=== PATIENT | female | born 1955 | race Caucasian/White ===

== ENCOUNTER → 2017-01-28 | Outpatient (CLI) | payer BC ==
--- NOTE | 2017-01-29 11:03 | DRAGON STRESS TEST REPORT ---
EXERCISE CARDIOLITE STRESS TEST USING SINGLE PHOTON EMMISION COMPUTERIZED TOMOGRAPHIC. DATE OF PROCEDURE: January 28, 2017 INDICATION : Chest pain CARDIAC RISK FACTORS: No significant reported RESTING EKG: Sinus rhythm, no Baseline ST-T wave changes noted STRESS EKG: Borderline significant changes noted with exercise. REASON FOR TERMINATION: Protocol. PROCEDURE REPORT: Baseline heart rate 60 beats per minute with blood pressure of 122/69. Patient had no significant complaints. Patient was excised on a standard Juan Jose protocol. Patient exercised for a total of 7 minutes and 01 seconds. Exercise stopped because of fatigue and shortness of breath. Patient achieved a peak heart rate of 137 bpm which is 86% of predicted maximum. Peak blood pressure achieved during the exercise was noted to be 154/66. Significant EKG artifacts were noted during exercise, therefore cannot recommend on ST segments changes during exercise. Immediate and early recovery did show mild ST segment depression of 1 mm in lateral chest leads. Patient had no other significant complaints during the procedure or postprocedure. CONCLUSIONS: Average exercise tolerance. No chest pain noted with exercise. Borderline EKG changes noted with exercise. Suboptimal blood pressure response but double product adequate at 20.1 kcalories. NUCLEAR DATA: At rest the patient was given 10.96 millicuries of technetium 99 sestamibi injected intravenously. As per protocol rest gated SPECT images were obtained. Subsequently the stress dose of 33.8 millicuries of technetium 99 sestamibi was injected intravenously at peak exercise. Patient continued to exercise for 1 to 2 additional minutes. As per protocol stress gated images were obtained. NUCLEAR INTERPRETATION: Both raw and processed data were used for interpretation. Visual, qualitative, computer-generated quantitative data was used. There was good myocardial uptake of technetium compound. Motion artifact and soft tissue attenuations were noted. Increased visceral uptake was noted. No definitive areas of transient perfusion defect noted. No definitive areas of fixed perfusion defect or scars noted. EKG gated imaging showed LV EF at 49 %, rest and stress gated EF similar visually. T. I D. ratio was 1.06. Lung heart ratio noted to be within normal limits 0.39. No significant extracardiac and abnormal radiotracer activities were noted. RV free wall uptake was noted to be WNL. IMPRESSION: Also refer to comments under nuclear interpretation. Also test results needs to be interpreted in the context of pretest probability. 1. There is no definitive scintigraphic evidence of exercise induced myocardial ischemia. 2. There is no definitive scintigraphic evidence of myocardial infarction/scar. 3. EKG gated imaging shows left ejection fraction of approximately 49 %. 4. Clinical correlation requested as occasionally single vessel disease or balanced ischemia could be missed. RECOMMENDATIONS: Aggressive risk factor modification, medical therapy. Clinical correlation with echocardiogram derived ejection fraction. Inability to exercise by itself can lead to increased cardiovascular event risks. Consider cardiology consultation and or follow-up if clinically indicated. I AM AVAILABLE FOR CARDIOLOGY CONSULTATION AND FOLLOWUP IF REQUESTED BY PMRamon Travis M.D., [employer] Worker long lines operator, Board certified in cardiovascular diseases, Nuclear cardiology, Echocardiography Cardiac CT and cardiac MRI Ph. [phone] [facility]
== END ==
LOC: RAD 07:58
PROVIDERS: ATTEND Family Medicine
DX: I20.8 Other forms of angina pectoris (principal)
CPT/HCPCS: 93017; 78452; A9500; Q9969

== ENCOUNTER 2017-11-20 15:42 | Inpatient (IN) | payer BC ==
--- NOTE | 2017-11-20 15:49 | ER Document Report ---
ED Extremity Problem, Lower - General Chief Complaint: Hip Pain Stated Complaint: RIGHT HIP PAIN Time Seen by Provider: 11/20/17 15:45 Notes: The patient is a 61-year-old female, no PMHx, who slipped down stairs, fell and landed on her right hip. She began to have pain at the area. EMS gave her 50 mcg of fentanyl prior to arrival. She denies numbness, tingling or open wounds. She did not hit her head. TRAVEL OUTSIDE OF THE [place] IN LAST 30 DAYS: No - Related Data Allergies/Adverse Reactions: codeine Allergy (Verified 11/20/17 15:54) Penicillins Allergy (Verified 11/20/17 15:54) Past Medical History - General Information source: Patient - Social History Smoking Status: Unknown if Ever Smoked Family History: None Pulmonary Medical History: Reports: Hx COPD Traumatic Medical History: Reports: Hx Fractures - wrist as a child Past Surgical History: Reports: Hx Tonsillectomy - Immunizations Immunizations up to date: No Hx Diphtheria, Pertussis, Tetanus Vaccination: No Review of Systems - Review of Systems Notes: REVIEW OF SYSTEMS: CONSTITUTIONAL: -fevers, -chills EENT: -eye pain, -difficulty swallowing, -nasal congestion CARDIOVASCULAR: -chest pain, -syncope. RESPIRATORY: -cough, -SOB GASTROINTESTINAL: -abdominal pain, -nausea, -vomiting, -diarrhea GENITOURINARY: -dysuria, -hematuria MUSCULOSKELETAL: +right hip pain, -back pain, -neck pain SKIN: -rash or skin lesions. HEMATOLOGIC: -easy bruising or bleeding. LYMPHATIC: -swollen, enlarged glands. NEUROLOGICAL: -altered mental status or loss of consciousness, -headache, - neurologic symptoms PSYCHIATRIC: -anxiety, -depression. ALL OTHER SYSTEMS REVIEWED AND NEGATIVE. Physical Exam - Vital signs Vitals: Temp Pulse BP Pulse Ox 98.2 F 85 131/76 H 92 11/20/17 16:13 11/20/17 16:13 11/20/17 16:13 11/20/17 16:13 - Notes Notes: PHYSICAL EXAMINATION: GENERAL: Mild distress. HEAD: Atraumatic, normocephalic. EYES: Pupils equal round and reactive to light, extraocular movements intact, sclera anicteric, conjunctiva are normal. ENT: nares patent, oropharynx clear without exudates. Moist mucous membranes. NECK: Normal range of motion, supple without lymphadenopathy LUNGS: Breath sounds clear to auscultation bilaterally and equal. No wheezes rales or rhonchi. HEART: Regular rate and rhythm without murmurs ABDOMEN: Soft, nontender, normoactive bowel sounds. No guarding, no rebound. No masses appreciated. EXTREMITIES: Internal rotation of right hip. Tenderness over right lateral hip. Strong distal pulses. Able to wiggle toes and sensation intact. NEUROLOGICAL: Cranial nerves grossly intact. Normal speech. Normal sensory and motor exams. PSYCH: Normal mood, normal affect. SKIN: Warm, Dry, normal turgor, no rashes or lesions noted. Course - Re-evaluation Re-evalutation: 11/20/17 16:53 Pt with oblique right proximal femur fracture. She is neurovascular intact distally. No other medical problems and pain is under control with morphine. Spoke to Dr. Bajwa and he will admit patient for surgical fixation. Pre-op labs, EKG and CXR ordered. - Vital Signs Vital signs: Temp Pulse Resp BP Pulse Ox 98.2 F 85 131/76 H 92 11/20/17 16:13 11/20/17 16:13 11/20/17 16:13 11/20/17 16:13 - Diagnostic Test Radiology reviewed: Image reviewed, Reports reviewed Radiology results interpreted by me: Right hip x-ray: OBLIQUE FRACTURE OF THE PROXIMAL RIGHT FEMUR. Discharge - Discharge Clinical Impression: Femur fracture, right Qualifiers: Encounter type: initial encounter Femur location: unspecified portion of femur Fracture type: closed Fracture morphology: unspecified fracture morphology Qualified Code(s): S72.91XA - Unspecified fracture of right femur, initial encounter for closed fracture Condition: Stable Disposition: ADMITTED INPATIENT Admitting Provider: Aydee Unit Admitted: Surgical Floor
[2017-11-20] MEDS ORDERED: MORPHINE SULFATE 10 MG/ML INJ IV ONE (15:58)
--- NOTE | 2017-11-20 16:19 | RADIOLOGY REPORT (SQ) ---
EXAM DESCRIPTION: HIP RIGHT AP/LATERAL COMPLETED DATE/TIME: 11/20/2017 4:10 pm REASON FOR STUDY: right hip pain COMPARISON: None. NUMBER OF VIEWS: Two views. TECHNIQUE: AP pelvis and additional frog-leg view of the right hip. LIMITATIONS: None. FINDINGS: MINERALIZATION: Normal. RIGHT HIP: Oblique fracture of the proximal femur with displacement. LEFT HIP: No fracture or dislocation. No worrisome bone lesions. PUBIS AND ISCHIUM: No fracture. PELVIS: No fracture. SACRUM: No fracture or dislocation. No worrisome bone lesions. LOWER LUMBAR SPINE: No fracture or dislocation. No worrisome bone lesions. No significant disc disea se. SOFT TISSUES: No findings. OTHER: No other significant finding. IMPRESSION: OBLIQUE FRACTURE OF THE PROXIMAL RIGHT FEMUR. TECHNICAL DOCUMENTATION: JOB ID: [id number] [employer]- All Rights Reserved
--- NOTE | 2017-11-20 17:29 | RADIOLOGY REPORT (SQ) ---
EXAM DESCRIPTION: CHEST SINGLE VIEW COMPLETED DATE/TIME: 11/20/2017 5:16 pm REASON FOR STUDY: pre-op COMPARISON: None. EXAM PARAMETERS: NUMBER OF VIEWS: One view. TECHNIQUE: Single frontal radiographic view of the chest acquired. RADIATION DOSE: NA LIMITATIONS: None. FINDINGS: LUNGS AND PLEURA: No opacities, masses or pneumothorax. No pleural effusion. MEDIASTINUM AND HILAR STRUCTURES: No masses. Contour normal. HEART AND VASCULAR STRUCTURES: Heart normal in size. Normal vasculature. BONES: No acute findings. HARDWARE: None in the chest. OTHER: No other significant finding. IMPRESSION: NO ACUTE RADIOGRAPHIC FINDING IN THE CHEST. TECHNICAL DOCUMENTATION: JOB ID: [id number] [employer]- All Rights Reserved
[2017-11-20 17:53] LABS: ABSOLUTE EOSINOPHILS # (AUTO) 0.1 10^3/uL (0.0-0.6); ABSOLUTE LYMPHOCYTES (AUTO) 1.3 10^3/uL (0.5-4.7); ABSOLUTE MONOCYTES (AUTO) 0.8 10^3/uL (0.1-1.4); ABSOLUTE NEUT (AUTO) 13.2 10^3/uL (1.7-8.2); BASOPHILS % (AUTO) 0.3 % (0-2); EOSINOPHILS % (AUTO) 0.7 % (0-6); HEMATOCRIT 39.5 % (36.0-47.0); HEMOGLOBIN 13.2 g/dL (12.0-15.5); LYMPHOCYTES % (AUTO) 8.2 % (13-45); MEAN CORPUSCULAR HEMOGLOBIN 31.8 pg (27.0-33.4); MEAN CORPUSCULAR HGB CONC 33.5 g/dL (32.0-36.0); MEAN CORPUSCULAR VOLUME 95 fl (80-97); MONOCYTES % (AUTO) 4.9 % (3-13); PLATELET COUNT 250 10^3/uL (150-450); RED BLOOD COUNT 4.15 10^6/uL (3.72-5.28); RED CELL DISTRIBUTION WIDTH 13.1 % (11.5-14.0); SEGMENTED NEUTROPHILS % (AUTO) 85.9 % (42-78); TOTAL CELLS COUNTED % (AUTO) 100 %; WHITE BLOOD COUNT 15.4 10^3/uL (4.0-10.5)
[2017-11-20 18:03] LABS: INTERNATIONAL RATION (INR) 0.98; PROTHROMBIN TIME 13.7 SEC (11.4-15.4)
[2017-11-20 18:04] LABS: PARTIAL THROMBOPLASTIN TIME 31.6 SEC (23.5-35.8)
[2017-11-20 18:16] LABS: ALANINE AMINOTRANSFERASE 30 U/L (9-52); ALKALINE PHOSPHATASE 70 U/L (38-126); ANION GAP 10 (5-19); ASPARTATE AMINO TRANSFERASE 21 U/L (14-36); BILIRUBIN,DIRECT 0.2 mg/dL (0.0-0.4); BILIRUBIN,TOTAL 0.4 mg/dL (0.2-1.3); BLOOD UREA NITROGEN 12 mg/dL (7-20); CALCIUM 9.7 mg/dL (8.4-10.2); CARBON DIOXIDE 27 mmol/L (22-30); CHLORIDE 105 mmol/L (98-107); GLUCOSE 103 mg/dL (75-110); POTASSIUM 3.9 mmol/L (3.6-5.0); SODIUM 142.2 mmol/L (137-145); TOTAL PROTEIN 6.3 g/dL (6.3-8.2)
[2017-11-20] MEDS ORDERED: RINGERS SOLUTION,LACTATED 1,000 ML IV PRN (20:02)
[2017-11-20] MEDS ORDERED: OXYCODONE-ACETAMINOPHEN 5-325 MG TABLET PO PRN ×2 (20:03)
[2017-11-20] MEDS ORDERED: GLUCAGON,HUMAN RECOMB 1 MG INJ SUBCUT PRN (20:13)
[2017-11-20] MEDS ORDERED: DEXTROSE 50%-WATER 25 GM/50 ML DISP.SYRIN IV PRN ×2 (20:13)
[2017-11-20] MEDS ORDERED: DEXTROSE 40% GEL 15 GM TUBE PO PRN ×2 (20:13)
[2017-11-20] MEDS: MORPHINE SULFATE 10 MG/ML INJ IV PRN (22:37)
[2017-11-21] MEDS: MORPHINE SULFATE 10 MG/ML INJ IV PRN ×2 (02:28→19:57)
[2017-11-21] MEDS ORDERED: ALBUTEROL SULFATE 0.083% NEB 2.5 MG/3 ML AMPUL NEB ONE (08:00)
[2017-11-21] MEDS ORDERED: ALBUTEROL SULFATE 0.083% NEB 2.5 MG/3 ML AMPUL NEB PRN (08:01)
[2017-11-21] MEDS ORDERED: HYDROMORPHONE HCL INJ/PF 2 MG/ML AMPULE ONE ×2 (08:42→08:44)
[2017-11-21] MEDS ORDERED: FENTANYL CITRATE INJ/PF 100 MCG/2 ML AMPUL ONE (08:43)
[2017-11-21] MEDS ORDERED: ONDANSETRON HCL INJ/PF 4 MG/2 ML SDV ONE (08:43)
[2017-11-21] MEDS ORDERED: ACETAMINOPHEN 100 ML IV ONE (08:43)
[2017-11-21] MEDS ORDERED: EPHEDRINE SULFATE INJ 50 MG/1 ML AMPULE ONE (08:43)
[2017-11-21] MEDS ORDERED: PROPOFOL INJ 200 MG/20 ML VIAL IV ONE (08:43)
[2017-11-21] MEDS ORDERED: CLINDAMYCIN 600 MG/D5W RTU 600 MG/50 ML RTUPB IV ONE (09:08)
--- NOTE | 2017-11-21 09:26 | PDOC H&P ---
History of Present Illness Admission Date/PCP: 11/20/17 17:30 REJI CHRISTINA MD Patient complains of: Right hip pain and deformity and inability to weight-bear History of Present Illness: BERNARDO BORREGO is a 61 year old female status post fall down stairs. Immediately had pain deformity and inability to get up. Patient denies any loss of consciousness. Denies any numbness or tingling or paresthesias. Denies any other extremity injury. Complains of right hip pain 5 out of 5 pain anterior laterally and posteriorly. Denies any previous surgeries or injuries to the right hip or femur. Past Medical History Pulmonary Medical History: Reports: Other - post nasal drip EENT Medical History: Denies: Cataracts, Eyes, Ears, Nose, Throat, Other Neurological Medical History: Denies: None, Hemorrhagic CVA, Ischemic CVA, Migraine, Multiple Sclerosis, Seizures, Other Endocrine Medical History: Denies: None, Diabetes Mellitus Type 1, Diabetes Mellitus Type 2, Gestational Diabetes, Hyperthyroidism, Hypothyroidism, Obesity, Other Renal/ Medical History: Denies: None, Chronic Kidney Disease, End Stage Renal Disease, Nephrolithiasis, Other Malignancy Medical History: Denies: None, Bone Cancer, Brain Cancer, Breast Cancer, Cervical Cancer, Colorectal Cancer, Leukemia, Liver Cancer, Lung Cancer, Lymphoma, Ovarian Cancer , Pancreatic Cancer, Renal (Kidney) Cancer, Skin Cancer, Other GI Medical History: Denies: None, Cirrhosis, Crohn's Disease, Diverticulitis, Gastroesophageal Reflux Disease, Hepatitis, Hiatal Hernia, Peptic Ulcer Disease, Ulcerative Colitis, Other Musculoskeltal Medical History: Denies: None, Arthritis, Fibromyalgia, Gout, Other Skin Medical History: Denies: None, Eczema, Psoriasis, Other Psychiatric Medical History: Denies: None, Alcohol Dependency, Attention Deficit Hyperactivity Disorder, Bipolar Disorder, Dementia, Depression, General Anxiety Disorder, Personality Disorder, Post Traumatic Stress Disorder, Schizoaffective Disorder, Substance Abuse, Tobacco Dependency, Other Traumatic Medical History: Denies: None, Gunshot Wound, Pneumothorax, Stab Wound, Traumatic Brain Injury , Other Hematology: Denies: None, Anemia, Hemophilia, Sickle Cell Disease, Bleeding Tendencies, Heparin Induced Thrombocytopenia, Neutropenia, Other Infectious Medical History: Denies: None, Clostridium Difficile, Hepatitis B, Hepatitis C, HIV, Methicillin-Resistant Staph Aureus, Vancomycin-Resistant Enterococci, Other Past Surgical History Past Surgical History: Reports: Tonsillectomy Social History Smoking Status: Unknown if Ever Smoked Frequency of Alcohol Use: None Hx Recreational Drug Use: No Drugs: None Hx Prescription Drug Abuse: No - Advance Directive Resuscitation Status: Full Code Family History Family History: None Parental Family History Reviewed: No Children Family History Reviewed: No Sibling(s) Family History Reviewed.: No Medication/Allergy Home Medications: No Home Medications 11/20/17 Allergies/Adverse Reactions: codeine Allergy (Verified 11/20/17 15:54) Penicillins Allergy (Verified 11/20/17 15:54) Review of Systems Constitutional: ABSENT: chills, fever(s), weight gain, weight loss Eyes: ABSENT: visual disturbances Ears: ABSENT: hearing changes Nose, Mouth, and Throat: ABSENT: headache(s), sore throat Cardiovascular: ABSENT: chest pain, dyspnea on exertion, palpitations Respiratory: ABSENT: cough, dyspnea, hemoptysis Gastrointestinal: ABSENT: abdominal pain, diarrhea, dysphagia, heartburn, nausea , vomiting Genitourinary: ABSENT: difficulty urinating, hematuria, nocturia Musculoskeletal: PRESENT: as per HPI Integumentary: ABSENT: erythema, rash, wounds Neurological: PRESENT: restless legs - with coeine. ABSENT: abnormal movements , abnormal speech, convulsions, numbness, tingling Psychiatric: ABSENT: hallucinations, homidical ideation, suicidal ideation Endocrine: ABSENT: polydipsia, polyphagia, polyuria Hematologic/Lymphatic: ABSENT: easy bruising, lymphadenopathy Allergic/Immunologic: ABSENT: seasonal rhinorrhea Physical Exam Vital Signs: Temp Pulse Resp BP Pulse Ox 36.8 C 81 12 140/55 H 92 11/21/17 08:01 11/21/17 08:01 11/21/17 08:01 11/21/17 08:01 11/21/17 08:01 Intake & Output 11/20/17 11/21/17 11/22/17 06:59 06:59 06:59 Intake Total 0 Output Total 250 Balance -250 Weight 50.8 kg General appearance: PRESENT: no acute distress, thin Eye exam: PRESENT: EOMI, PERRLA - pin point pupils second to narcotics given. ABSENT: conjunctival injection, nystagmus Ear exam: ABSENT: bleeding, normal external ear exam Mouth exam: PRESENT: neck supple, tongue midline Teeth exam: PRESENT: poor dentation Neck exam: ABSENT: tenderness, thyromegaly, tracheal deviation Respiratory exam: PRESENT: symmetrical, unlabored. ABSENT: accessory muscle use , chest wall tenderness, tachypnea Cardiovascular exam: PRESENT: RRR. ABSENT: systolic murmur Pulses: PRESENT: normal dorsalis pedis pul Vascular exam: PRESENT: normal capillary refill GI/Abdominal exam: PRESENT: soft. ABSENT: distended, firm, organolmegaly, tenderness Gentrourinary exam: PRESENT: indwelling catheter Musculoskeletal exam: PRESENT: deformity - right thigh Neurological exam: PRESENT: alert, awake, oriented to person, oriented to place , oriented to time Psychiatric exam: PRESENT: appropriate affect, normal mood Focused psych exam: ABSENT: delusional, flight of ideas, paranoid Skin exam: PRESENT: intact. ABSENT: erythema, rash Adult Front & Back Image: 1 - Right lower extremity is shortened and externally rotated with the [place] the thigh. Tender palpation. Any attempted range of motion with internal/ external rotation let alone flexion causes excruciating pain. She is neurovascular intact distally. There is intact. No ecchymosis. Results Laboratory Results: 11/20/17 17:45 11/20/17 17:45 11/20/17 11/20/17 11/21/17 17:45 17:45 00:12 WBC 15.4 H RBC 4.15 Hgb 13.2 Hct 39.5 MCV 95 MCH 31.8 MCHC 33.5 RDW 13.1 Plt Count 250 Seg Neutrophils % 85.9 H Lymphocytes % 8.2 L Monocytes % 4.9 Eosinophils % 0.7 Basophils % 0.3 Absolute Neutrophils 13.2 H Absolute Lymphocytes 1.3 Absolute Monocytes 0.8 Absolute Eosinophils 0.1 Absolute Basophils 0.0 Sodium 142.2 Potassium 3.9 Chloride 105 Carbon Dioxide 27 Anion Gap 10 BUN 12 Creatinine 0.75 Est GFR ( Amer) > 60 Est GFR (Non-Af Amer) > 60 Glucose 103 Calcium 9.7 Total Bilirubin 0.4 AST 21 ALT 30 Alkaline Phosphatase 70 Total Protein 6.3 Albumin 4.0 Blood Type O POSITIVE Antibody Screen NEGATIVE Impressions: Hip/Pelvis X-Ray 11/20/17 15:45 IMPRESSION: OBLIQUE FRACTURE OF THE PROXIMAL RIGHT FEMUR. Chest X-Ray 11/20/17 16:56 IMPRESSION: NO ACUTE RADIOGRAPHIC FINDING IN THE CHEST. Status: Image reviewed by me Assessment & Plan - Diagnosis (1) Intertrochanteric fracture of right femur Qualifiers: Encounter type: initial encounter Fracture type: closed Fracture alignment: displaced Qualified Code(s): S72.141A - Displaced intertrochanteric fracture of right femur, initial encounter for closed fracture Is this a current diagnosis for this admission?: Yes Plan: 61-year-old female with right reverse obliquity intertrochanteric hip fracture. Patient is admitted under orthopedics. Discussed proceeding with gamma nail of her right hip fracture. Discussed the risk and benefits with the patient. Patient agreed and will proceed with surgery. In the meantime keep her bedrest. Place Gonzales. Will give her pain control and make her n.p.o. after midnight and start fluids after midnight.
[2017-11-21] MEDS ORDERED: PROMETHAZINE HCL INJ 25 MG/1 ML VIAL IV PRN (09:56)
[2017-11-21] MEDS ORDERED: FENTANYL CITRATE INJ/PF 100 MCG/2 ML AMPUL IV PRN ×3 (09:56)
[2017-11-21] MEDS ORDERED: DIPHENHYDRAMINE HCL 50 MG/ML VIAL IV PRN (09:56)
--- NOTE | 2017-11-21 10:45 | Operative Report ---
Operative Report DATE OF SURGERY: 11/21/17 PREOPERATIVE DIAGNOSIS: Right reverse obliquity intertrochanteric hip fracture POSTOPERATIVE DIAGNOSIS: Same OPERATION: Cephalo-medullary nailing of right intertrochanteric hip fracture SURGEON: MARILIA PRINCE ANESTHESIA: GA TISSUE REMOVED OR ALTERED: None COMPLICATIONS: None ESTIMATED BLOOD LOSS: 150 mL INTRAOPERATIVE FINDINGS: As above PROCEDURE: Patient was seen and evaluated in the preoperative holding area. The right lower extremity was initialized and marked. Patient received 2 g Ancef IV for bacterial prophylaxis. Patient was taken back to the operative room where transferred operative table. Patient was placed under spinal anesthesia. Once adequate anesthetized he was carefully placed onto the hip positioner the nonoperative lower extremity and bilateral upper extremities were carefully padded and the peroneal nerve was padded and on the nonoperative extremity. The operative extremity was placed in a traction along with adduction and internal rotation. A surgical team debriefing was performed ensuring all instrumentation was available, the surgical procedure was discussed with possible concerns reviewed. A timeout was done identifying correct patient, procedure and extremity everyone in attendance agree with this and verbalized no concerns. Reduction maneuver with the use of the hip traction table were done and C-arm fluoroscopy was used to confirm optimal reduction of the intertrochanteric fracture. Once this was confirmed the lower extremity was prepped with chlor prep and draped in a sterile fashion. At this point a small skin incision was made proximal to the greater trochanter. The guidewire was placed onto the tip of the trochanter advanced down to the level of the lesser trochanter. AP and lateral fluoroscopy was used to confirm appropriate placement of the guidewire. The skin incision was then extended and the underlying fascia opened up carefully to the tip of the greater trochanter. The entry reamer was then used and advanced to the level of the lesser trochanter. At this point we proceeded to place a long guidepin and was able to place the distal to the knee. C-arm pictures confirm placement of the guidewire at the level of the knee. We proceeded then to ream all way up to a 12 mm reamer. We measured the length to be between 3 8400 mm in length so we went with a 380 mm length nail by 130 angle. Aiming arm was applied to the nail and then introduced successfully over the guide wire. Guidewire was removed and then we proceeded to turn our attention to the compression screw. Then turned my attention to the compression screw fixation in the femoral head. The trochars were advanced to the skin, a skin incision was made, careful dissection down to the fascia to the lateral femoral cortex was then partaken. The guidewire was then used and placed in the center center position with the tip apex distance less than 25 mm. Once this position was obtained the size of the compression screw was measured. AP and lateral fluoroscopy used to confirm appropriate placement of our guide wire. The step reamer was used to drill up through the femoral neck and head. I then carefully advanced the compression screw into position. AP and lateral fluoroscopy was done to confirm appropriate placement of the compression screw this was then locked into position proximally. The compression screw was then disengaged from its mounting device and the guidewire was removed. Lastly proceeded with locking of the nail distally. We obtained perfect circles by abducting the extremity and placing the C-arm perpendicular. We obtained perfect circles after magnification was done. Advanced to the skin, a skin incision was made. Careful dissection done with a hemostat to the lateral cortex of the femur. I then drilled the near and far cortices. Measured the appropriate sized distal locking screw and secured it into position. There was a 5.0 mm x 45 mm long screw. At this point AP/lateral and oblique views of the proximal and distal aspect of the nail were taken confirming appropriate placement of the compression screw, distal locking screw and intramedullary nail. Once this was confirmed I proceeded with copious irrigation of the proximal and distal wounds. The deep tissues were closed with 0 Vicryl suture, subcutaneous tissues were closed with 3-0 Monocryl suture. The skin was closed a running 3-0 subcuticular Monocryl suture and reinforced with Dermabond & Steri-Strips. A dressing was placed. Sponge counts, instrument counts and needle counts were correct. Patient was then transferred from the operating room table to the operating room stretcher. The was no intraoperative complications patient tolerated procedure well was stable to PACU. Implants used: Zenon 11 x 380 mm 130 Short Gamma Nail with a 95 mm compression screw Postoperative plan: Patient will begin physical therapy on postop day #1 with Xarelto daily.
[2017-11-21] MEDS ORDERED: RINGERS SOLUTION,LACTATED 1,000 ML IV PRN ×2 (10:46→11:31)
--- NOTE | 2017-11-21 11:16 | RADIOLOGY REPORT (SQ) ---
EXAM DESCRIPTION: HIP RIGHT AP/LATERAL; NO CHG FLUORO COMPLETED DATE/TIME: 11/21/2017 11:02 am REASON FOR STUDY: RIGHT HIP INTERMEDUALLRY NAIL COMPARISON: None. FLUOROSCOPY TIME: 1.4 minutes 9 images saved to PACS. TECHNIQUE: Intra-operative images acquired during surgical procedure to evaluate progress. NUMBER OF IMAGES: 9 LIMITATIONS: None. FINDINGS: Fluoroscopic imaging demonstrates ORIF right femoral neck fracture without gross complicat ion. IMPRESSION: IMAGE(S) OBTAINED DURING PROCEDURE. COMMENT: Quality ID [id number]: Final reports for procedures using fluoroscopy that document radiation exp osure indices, or exposure time and number of fluorographic images (if radiation exposure indices are not available) Please consult full operative report of the attending physician for description of the procedure. TECHNICAL DOCUMENTATION: JOB ID: [id number] [employer]- All Rights Reserved
--- NOTE | 2017-11-21 11:16 | RADIOLOGY REPORT (SQ) ---
EXAM DESCRIPTION: HIP RIGHT AP/LATERAL; NO CHG FLUORO COMPLETED DATE/TIME: 11/21/2017 11:02 am REASON FOR STUDY: RIGHT HIP INTERMEDUALLRY NAIL COMPARISON: None. FLUOROSCOPY TIME: 1.4 minutes 9 images saved to PACS. TECHNIQUE: Intra-operative images acquired during surgical procedure to evaluate progress. NUMBER OF IMAGES: 9 LIMITATIONS: None. FINDINGS: Fluoroscopic imaging demonstrates ORIF right femoral neck fracture without gross complicat ion. IMPRESSION: IMAGE(S) OBTAINED DURING PROCEDURE. COMMENT: Quality ID [id number]: Final reports for procedures using fluoroscopy that document radiation exp osure indices, or exposure time and number of fluorographic images (if radiation exposure indices are not available) Please consult full operative report of the attending physician for description of the procedure. TECHNICAL DOCUMENTATION: JOB ID: [id number] [employer]- All Rights Reserved
--- NOTE | 2017-11-21 11:52 | EKG REPORT ---
SEVERITY:- ABNORMAL ECG - SINUS RHYTHM NONSPECIFIC T ABNORMALITIES, LATERAL LEADS : Confirmed by: Hayley Travis 21-Nov-2017 11:51:51
[2017-11-21] MEDS: CLINDAMYCIN 600 MG/D5W RTU 600 MG/50 ML RTUPB IV SCH (17:17)
[2017-11-21] MEDS: RIVAROXABAN 10 MG TABLET PO SCH (21:28)
[2017-11-21] MEDS: OXYCODONE HCL IR 5 MG TABLET PO PRN (21:28)
[2017-11-22] MEDS: CLINDAMYCIN 600 MG/D5W RTU 600 MG/50 ML RTUPB IV SCH ×2 (01:57→09:10)
[2017-11-22] MEDS: OXYCODONE HCL IR 5 MG TABLET PO PRN ×4 (01:57→21:07)
[2017-11-22 05:49] LABS: HEMATOCRIT 29.2 % (36.0-47.0); MEAN CORPUSCULAR HEMOGLOBIN 32.1 pg (27.0-33.4); MEAN CORPUSCULAR HGB CONC 33.5 g/dL (32.0-36.0); MEAN CORPUSCULAR VOLUME 96 fl (80-97); PLATELET COUNT 157 10^3/uL (150-450); RED BLOOD COUNT 3.04 10^6/uL (3.72-5.28); RED CELL DISTRIBUTION WIDTH 12.9 % (11.5-14.0); WHITE BLOOD COUNT 11.8 10^3/uL (4.0-10.5)
[2017-11-22 05:51] LABS: HEMOGLOBIN 9.8 g/dL (12.0-15.5)
[2017-11-22 06:22] LABS: ANION GAP 6 (5-19); BLOOD UREA NITROGEN 9 mg/dL (7-20); CALCIUM 8.8 mg/dL (8.4-10.2); CARBON DIOXIDE 30 mmol/L (22-30); CHLORIDE 101 mmol/L (98-107); GLUCOSE 104 mg/dL (75-110); POTASSIUM 4.3 mmol/L (3.6-5.0); SODIUM 136.8 mmol/L (137-145)
--- NOTE | 2017-11-22 09:49 | PDOC PROGRESS REPORT ---
Subjective Progress Note for:: 11/22/17 Subjective:: Patient is sitting bedside and significant pain. She is working with physical therapy. States no issues overnight except for pain. Reason For Visit: FRACTURE OF RIGHT FEMUR Physical Exam Vital Signs: Temp Pulse Resp BP Pulse Ox 37.6 C 89 18 108/51 L 93 11/22/17 08:24 11/22/17 08:24 11/22/17 08:24 11/22/17 08:24 11/22/17 08:24 Intake & Output 11/21/17 11/22/17 11/23/17 06:59 06:59 06:59 Intake Total 0 5965 Output Total 250 1930 Balance -250 4035 Weight 50.8 kg 59 kg General appearance: PRESENT: no acute distress Adult Front & Back Image: 1 - Steri-Strips and incisions are dry clean and intact. Minimal ecchymosis and swelling. Good sensation to light touch distally with the 5 out of 5 extension flexion of the ankle and toes. Good capillary refill. Results Laboratory Results: 11/22/17 04:50 11/22/17 04:50 11/22/17 11/22/17 04:50 04:50 WBC 11.8 H RBC 3.04 L Hgb 9.8 L D Hct 29.2 L MCV 96 MCH 32.1 MCHC 33.5 RDW 12.9 Plt Count 157 Sodium 136.8 L Potassium 4.3 Chloride 101 Carbon Dioxide 30 Anion Gap 6 BUN 9 Creatinine 0.72 Est GFR ( Amer) > 60 Est GFR (Non-Af Amer) > 60 Glucose 104 Calcium 8.8 Impressions: Chest X-Ray 11/20/17 16:56 IMPRESSION: NO ACUTE RADIOGRAPHIC FINDING IN THE CHEST. Fluoroscopy 11/21/17 00:00 IMPRESSION: IMAGE(S) OBTAINED DURING PROCEDURE. Hip/Pelvis X-Ray 11/21/17 00:00 IMPRESSION: IMAGE(S) OBTAINED DURING PROCEDURE. Status: Image reviewed by me Assessment & Plan - Diagnosis (1) Intertrochanteric fracture of right femur Qualifiers: Encounter type: initial encounter Fracture type: closed Fracture alignment: displaced Qualified Code(s): S72.141A - Displaced intertrochanteric fracture of right femur, initial encounter for closed fracture Is this a current diagnosis for this admission?: Yes - Plan Summary Plan Summary: Patient is asked the 1-year-old female POD #1 from cephalo-medullary nailing of right reverse obliquity intertrochanteric hip fracture. Continue physical therapy Continue pain control Continue DVT prophylaxis Patient may be going to rehab versus home depending on recommendation from therapy
[2017-11-22] MEDS: ONDANSETRON HCL INJ/PF 4 MG/2 ML SDV IV PRN (10:13)
[2017-11-22] MEDS: RIVAROXABAN 10 MG TABLET PO SCH (21:07)
[2017-11-23] MEDS: OXYCODONE HCL IR 5 MG TABLET PO PRN ×3 (01:38→17:32)
[2017-11-23 05:56] LABS: HEMATOCRIT 28.8 % (36.0-47.0); HEMOGLOBIN 9.9 g/dL (12.0-15.5); MEAN CORPUSCULAR HEMOGLOBIN 32.5 pg (27.0-33.4); MEAN CORPUSCULAR HGB CONC 34.3 g/dL (32.0-36.0); MEAN CORPUSCULAR VOLUME 95 fl (80-97); PLATELET COUNT 168 10^3/uL (150-450); RED BLOOD COUNT 3.03 10^6/uL (3.72-5.28); RED CELL DISTRIBUTION WIDTH 12.8 % (11.5-14.0); WHITE BLOOD COUNT 15.2 10^3/uL (4.0-10.5)
[2017-11-23] MEDS: ONDANSETRON HCL INJ/PF 4 MG/2 ML SDV IV PRN (12:56)
--- NOTE | 2017-11-23 18:21 | PDOC PROGRESS REPORT ---
Subjective Progress Note for:: 11/23/17 Subjective:: Patient complaining of hip pain. Was only able to do 5 steps with physical therapy today. Plan is still to go home once cleared from therapy. No issues overnight Reason For Visit: FRACTURE OF RIGHT FEMUR Physical Exam Vital Signs: Temp Pulse Resp BP Pulse Ox 37.2 C 98 16 122/61 100 11/23/17 12:10 11/23/17 12:10 11/23/17 12:10 11/23/17 12:10 11/23/17 12:10 Intake & Output 11/22/17 11/23/17 11/24/17 06:59 06:59 06:59 Intake Total 5965 450 1182 Output Total 1930 800 Balance 4035 -350 1182 Weight 59 kg 56.7 kg Adult Front & Back Image: 1 - Steri-Strips in place incisions are clean dry and intact. Postsurgical swelling. Good sensation to light touch distally plantarflexion and dorsiflexion of the digits good capillary refill. Pain with attempted range of motion of the head. Results Laboratory Results: 11/23/17 04:40 11/22/17 04:50 11/23/17 04:40 WBC 15.2 H RBC 3.03 L Hgb 9.9 L Hct 28.8 L MCV 95 MCH 32.5 MCHC 34.3 RDW 12.8 Plt Count 168 Impressions: Chest X-Ray 11/20/17 16:56 IMPRESSION: NO ACUTE RADIOGRAPHIC FINDING IN THE CHEST. Fluoroscopy 11/21/17 00:00 IMPRESSION: IMAGE(S) OBTAINED DURING PROCEDURE. Hip/Pelvis X-Ray 11/21/17 00:00 IMPRESSION: IMAGE(S) OBTAINED DURING PROCEDURE. Status: Image reviewed by me Assessment & Plan - Diagnosis (1) Intertrochanteric fracture of right femur Qualifiers: Encounter type: initial encounter Fracture type: closed Fracture alignment: displaced Qualified Code(s): S72.141A - Displaced intertrochanteric fracture of right femur, initial encounter for closed fracture Is this a current diagnosis for this admission?: Yes - Plan Summary Plan Summary: Patient is 61-year-old female POD #2 from cephalo-medullary nailing of right reverse obliquity intertrochanteric hip fracture. Continue physical therapy with goal to sent home with home health. Continue pain control Continue DVT prophylaxis
[2017-11-23] MEDS: RIVAROXABAN 10 MG TABLET PO SCH (21:45)
[2017-11-24] MEDS: OXYCODONE HCL IR 5 MG TABLET PO PRN ×3 (00:53→16:33)
[2017-11-24 04:41] LABS: HEMATOCRIT 25.5 % (36.0-47.0); HEMOGLOBIN 8.8 g/dL (12.0-15.5); MEAN CORPUSCULAR HEMOGLOBIN 32.4 pg (27.0-33.4); MEAN CORPUSCULAR HGB CONC 34.5 g/dL (32.0-36.0); MEAN CORPUSCULAR VOLUME 94 fl (80-97); PLATELET COUNT 181 10^3/uL (150-450); RED BLOOD COUNT 2.72 10^6/uL (3.72-5.28); RED CELL DISTRIBUTION WIDTH 12.8 % (11.5-14.0); WHITE BLOOD COUNT 13.3 10^3/uL (4.0-10.5)
--- NOTE | 2017-11-24 09:23 | PDOC PROGRESS REPORT ---
Subjective Progress Note for:: 11/24/17 Subjective:: Patient seen on rounds today. States pain is currently controlled but she does have increased pain with attempted motion. She is able to walk 5 steps in physical therapy yesterday. She is encouraged that the pain is somewhat improved. Denies chest pain or shortness of breath. Reason For Visit: FRACTURE OF RIGHT FEMUR Physical Exam Vital Signs: Temp Pulse Resp BP Pulse Ox 98.4 F 95 20 106/53 L 93 11/24/17 07:26 11/24/17 07:26 11/24/17 07:26 11/24/17 07:26 11/24/17 07:26 Intake & Output 11/23/17 11/24/17 11/25/17 06:59 06:59 06:59 Intake Total 450 1822 Output Total 800 900 Balance -350 922 Weight 56.7 kg Musculoskeletal exam: PRESENT: other - Right hip: Dressing clean/dry/intact no erythema or drainage. No calf tenderness. Mild thigh swelling. Intact plantar flexion/dorsiflexion. No evidence of malrotation or limb length inequality Results Laboratory Results: 11/24/17 04:09 11/22/17 04:50 11/24/17 04:09 WBC 13.3 H RBC 2.72 L Hgb 8.8 L Hct 25.5 L MCV 94 MCH 32.4 MCHC 34.5 RDW 12.8 Plt Count 181 Impressions: Chest X-Ray 11/20/17 16:56 IMPRESSION: NO ACUTE RADIOGRAPHIC FINDING IN THE CHEST. Fluoroscopy 11/21/17 00:00 IMPRESSION: IMAGE(S) OBTAINED DURING PROCEDURE. Hip/Pelvis X-Ray 11/21/17 00:00 IMPRESSION: IMAGE(S) OBTAINED DURING PROCEDURE. Assessment & Plan - Diagnosis (1) Intertrochanteric fracture of right femur Qualifiers: Encounter type: initial encounter Fracture type: closed Fracture alignment: displaced Qualified Code(s): S72.141A - Displaced intertrochanteric fracture of right femur, initial encounter for closed fracture Is this a current diagnosis for this admission?: Yes Plan: Status post cephalo-medullary nail right intertrochanteric fracture #1 pain control #2 Xarelto for DVT prophylaxis #3 hematocrit 25 and stable patient asymptomatic #4 discharge planning plan is for patient to be discharged home with home health anticipate discharge in 24 hours if she sees improvement with physical therapy.
[2017-11-24] MEDS: RIVAROXABAN 10 MG TABLET PO SCH (21:21)
[2017-11-25] MEDS: OXYCODONE HCL IR 5 MG TABLET PO PRN ×3 (00:52→16:25)
[2017-11-25] MEDS: ONDANSETRON HCL INJ/PF 4 MG/2 ML SDV IV PRN (08:23)
[2017-11-25 17:51] VITALS: BP 140/55
--- NOTE | 2017-11-25 18:05 | PDOC DISCHARGE SUMMARY ---
General - Admit/Disc Date/PCP Admission Date/Primary Care Provider: 11/20/17 17:30 REJI CHRISTINA MD Discharge Date: 11/25/17 - Discharge Diagnosis (1) Intertrochanteric fracture of right femur Is this a current diagnosis for this admission?: Yes - Additional Information Resuscitation Status: Full Code Discharge Diet: As Tolerated Discharge Activity: Balance Activity w/Rest Home Medications: No Home Medications 11/20/17 History of Present Illness Patient complains of: right hip pain History of Present Illness: PAtient admitted with right intertrochanteric hip fracture on thursday. on thursday underwent CMR right IT hip fx. Patient had uneventful hospital stay. pain slowly controlled and patient progressed with Physical therapy. Patient will be discharged to home with home health today. Hospital Course Hospital Course: PAtient admitted for fracture CMR of hp fracture following day. uneventul recovery. Progressed with therapy and able to be discharged today with home health Physical Exam Vital Signs: Temp Pulse Resp BP Pulse Ox 36.9 C 99 16 140/55 H 97 11/25/17 17:47 11/25/17 17:47 11/25/17 17:47 11/25/17 17:47 11/25/17 17:47 Intake & Output 11/24/17 11/25/17 11/26/17 06:59 06:59 06:59 Intake Total 1822 1905 Output Total 900 1700 Balance 922 205 Weight 53.5 kg General appearance: PRESENT: no acute distress Eye exam: PRESENT: EOMI, PERRLA Ear exam: PRESENT: normal external ear exam Neck exam: PRESENT: lymphadenopathy Respiratory exam: PRESENT: symmetrical, unlabored. ABSENT: tachypnea Pulses: PRESENT: normal dorsalis pedis pul Vascular exam: PRESENT: normal capillary refill GI/Abdominal exam: PRESENT: soft. ABSENT: tenderness Neurological exam: PRESENT: alert, awake, oriented to person, oriented to place , oriented to time, oriented to situation Psychiatric exam: PRESENT: appropriate affect, normal mood Skin exam: PRESENT: intact, other - Incisions dry clean and intact Adult Front & Back Image: 1 - No signs of infection, NVI distally Results Laboratory Results: 11/24/17 04:09 11/22/17 04:50 Impressions: Chest X-Ray 11/20/17 16:56 IMPRESSION: NO ACUTE RADIOGRAPHIC FINDING IN THE CHEST. Fluoroscopy 11/21/17 00:00 IMPRESSION: IMAGE(S) OBTAINED DURING PROCEDURE. Hip/Pelvis X-Ray 11/21/17 00:00
== END 2017-11-25 19:00 | disposition home health service (06) | DRG 482 ==
LOC: ER 15:42 → EH 17:30 → 4N 18:48
PROVIDERS: ADMIT Orthopaedic Surgery; ATTEND Orthopaedic Surgery
PROC: 0QS636Z Reposition Right Upper Femur with Intramedullary Internal Fixation Device, Percutaneous Approach (ICD-10-PCS; principal; 2017-11-21 09:00)
DX: S72.141A Displaced intertrochanteric fracture of right femur, initial encounter for closed fracture (principal); W10.9XXA Fall (on) (from) unspecified stairs and steps, initial encounter; Y92.512 Supermarket, store or market as the place of occurrence of the external cause; Z88.6 Allergy status to analgesic agent; Z88.0 Allergy status to penicillin
CPT/HCPCS: 01230; 36415; 71045; 80048; 80053; 85025; 85027; 85610; 85730; 86850; 86900; 86901; 93005; 93010; 94799; 96374; 99285; J0131; J1170; J2270; J2405; J2704; J3010; J3490; J7120